=== PATIENT | male | born 1945 ===

== ENCOUNTER 2018-11-24 08:30 | Day surgery (SDC) | payer MEDICARE ==
[2018-11-24 09:19] VITALS: BMI 24.3
[2018-11-24] MEDS ORDERED: Lidocaine Hydrochloride 10 ML INJ ONE (09:46)
[2018-11-24] MEDS ORDERED: Clindamycin 600mg/50ml NS 600 MG/50 ML BAG IVPB ONE (09:46)
[2018-11-24] MEDS ORDERED: Bupivacaine HCl 0.25% PF (10 ml) Inj ONE (09:46)
[2018-11-24] MEDS ORDERED: Midazolam 2 MG/2 ML VIAL ONE (09:48)
--- NOTE | 2018-11-24 10:28 | PCM.SURG1 ---
Surgeon's Initial Post Op Note - Surgeon's Notes Surgeon: Dr. [employer] [employer] Assistant: Dr. Salazar Type of Anesthesia: IV Sedation, Local Pre-Operative Diagnosis: Left foot gangrene Operative Findings: see dictation. I 10 cc 1:1 mix 2% lidocaine plain, 0.25% marcaine plain. M iodoform 1/4", peroxide soaked gauze, DSD Post-Operative Diagnosis: same Operation Performed: Debridement of left foot with versajet Specimen/Specimens Removed: none Estimated Blood Loss: EBL {In ML}: 5 Blood Products Given: N/A Drains Used: No Drains Post-Op Condition: Good Date of Surgery/Procedure: 11/24/18 Time of Surgery/Procedure: 10:28
[2018-11-24] MEDS ORDERED: Oxycodone/Acetaminophen 5/325 mg Tab PO PRN ×2 (10:32)
[2018-11-24] MEDS ORDERED: Sodium Chloride 0.9% 250 ML IV ONE (11:26)
[2018-11-24 13:02] VITALS: RESP 18; O2SAT 97
[2018-11-24 15:35] VITALS: BP 130/68; PULSE 80; TEMP 97.6
--- NOTE | 2018-11-25 16:22 | OP ---
PROCEDURE DATE: 11/24/2018 SURGEON: Rob Barba DPM LIBRARIAN HEAD: Mable Salazar MD, PGY-1 ANESTHESIA: IV sedation with local. PREOPERATIVE DIAGNOSIS: Left foot gangrene. POSTOPERATIVE DIAGNOSIS: Left foot gangrene. NAME OF PROCEDURE: Left foot wound debridement with Versajet. INDICATION: The patient is a 73-year-old male with the above diagnosis. The patient has exhausted all conservative treatments at this time and now requires surgical intervention. The patient signed the consent after careful explanation of risks, benefits, complications, and alternatives for the surgical procedures. No guarantees were given nor implied. N.p.o. status was confirmed prior to taking the patient to the OR. PREPARATION: The patient was brought into the operating room and placed on the operating room table in a supine position. A time-out was performed for identification of the correct patient and procedure. After induction of IV sedation, the patient received a total of 10 mL of 1:1 mixture of 0.5% Marcaine plain and 1% lidocaine plain in a local block fashion to the left forefoot. The left lower extremity was then prepped and draped in a normal sterile manner and the procedure began. No tourniquet was used during the procedure. DESCRIPTION OF PROCEDURE: Attention was directed to the plantar aspect of the medial forefoot, specifically to the submetatarsal 1 and 2 and extending distally to the plantar aspect of the first and second digit as well as the first interspace where a mixed fibrotic and granular wound base was noted with exposed flexor tendon. Necrotic tissue was also noted but was very minimal at the wound base. Using a Versajet on para level 2 and also utilizing a small tissue-cutting scissor, the base of the ulceration was excisionally debrided of all fibrotic and nonviable tissue until fresh healthy bleeding granular tissue appeared at the surgical field. A sterile #15 blade and forceps were used to excise all necrotic tissue from the wound borders as well as hyperkeratotic tissue. Next, the ulcer was irrigated with copious amounts of peroxide and sterile saline. The surgical site was then dressed with peroxide soaked gauze, dry sterile dressing and Kerlix. No Shailesh wrap was applied to the foot. POSTOPERATIVE CONDITION: The patient tolerated the anesthesia and procedure well and was escorted to the recovery room with vital signs stable and neurovascular status intact to the left lower extremity. The patient is to be remain nonweightbearing to left lower extremity. The patient will continue to follow Dr. Barba as an outpatient and will follow up in his office within one week of discharge. MABLE SALAZAR MD Rob Barba DPM
== END 2018-11-24 14:25 | disposition home or self-care (01) ==
LOC: C.SDS 08:30
PROVIDERS: ATTEND Podiatrist Foot Surgery
DX: E11.52 Type 2 diabetes mellitus with diabetic peripheral angiopathy with gangrene (principal); I96 Gangrene, not elsewhere classified; I10 Essential (primary) hypertension; E78.5 Hyperlipidemia, unspecified; I25.10 Atherosclerotic heart disease of native coronary artery without angina pectoris
CPT/HCPCS: 11042; 82948; J2250; J3010; J7030; J7050